=== PATIENT | female | born 2000 | race Caucasian/White ===

== ENCOUNTER 2023-04-30 10:55 | Emergency (ER) | payer OTHER ==
[~2023-04-30] VITALS: Ht 154.9 cm; Wt 90.9 kg
[2023-04-30 11:07] VITALS: TEMP 98.4
[2023-04-30] MEDS: ACETAMINOPHEN 500 MG TABLET PO ONE (12:31)
[2023-04-30] MEDS: FLUCONAZOLE 150 MG TABLET PO ONE (12:31)
[2023-04-30 12:36] LABS: APPEARANCE,URINE HAZY (CLEAR); BILIRUBIN,URINE NEGATIVE (NEGATIVE); COLOR,URINE LIGHT YELLOW (YELLOW); GLUCOSE, URINE (UA) >=1000 mg/dL (NEGATIVE); LEUKOCYTE ESTERASE ,URINE MODERATE (NEGATIVE); NITRATE,URINE NEGATIVE (NEGATIVE); OCCULT BLOOD,URINE TRACE (NEGATIVE); PROTEIN,URINE TRACE mg/dL (NEGATIVE); UROBILINOGEN,URINE <=1.0 mg/dL (<=1.0)
[2023-04-30 12:47] LABS: BACTERIA,URINE Moderate /HPF (None Seen); CALCIUM OXALATE CRYSTALS,UR Moderate /LPF (None Seen); SQUAMOUS EPITHELIAL CELL,UR Few /LPF (None Seen)
[2023-04-30 12:50] LABS: HCG,QUAL URINE NEGATIVE (NEGATIVE)
[2023-04-30 13:00] VITALS: BP 120/72; PULSE 75; RESP 14
[2023-04-30] MEDS ORDERED: IBUP-1492 PO (13:06)
[2023-04-30] MEDS ORDERED: CEPH-558 PO (13:06)
[2023-04-30] MEDS ORDERED: ACET-3385 PO (13:06)
== END 2023-04-30 13:13 | disposition home or self-care (01) ==
LOC: EMS 10:55
DX: N39.0 Urinary tract infection, site not specified (principal)
CPT/HCPCS: 81001; 84703; 87086; 87186; 87210; 87491; 87591; 99283

== ENCOUNTER 2023-08-27 17:29 | Emergency (ER) | payer OTHER ==
[~2023-08-27] VITALS: Ht 154.9 cm; Wt 92.3 kg
[~2023-08-27 17:29] MED LIST: ACET-3385 PO; CEPH-558 PO; IBUP-1492 PO
[2023-08-27 17:30] VITALS: TEMP 98
[2023-08-27 17:50] LABS: BASOPHILS % (AUTO) 0.6 % (0.0-2.0); EOSINOPHILS % (AUTO) 2.4 % (1.0-6.0); HEMATOCRIT 38.2 % (36-46); LYMPHOCYTES # (AUTO) 4.6 K/uL (1.0-4.8); LYMPHOCYTES % (AUTO) 31.7 % (22.0-44.0); MEAN CORPUSCULAR HEMOGLOBIN 24.5 pg (26.0-34.0); MEAN CORPUSCULAR HGB CONC 31.4 G/dL (31.0-37.0); MEAN CORPUSCULAR VOLUME 78 fL (80-100); MONOCYTES # (AUTO) 0.9 K/uL (0.1-1.0); MONOCYTES % (AUTO) 6.4 % (2.0-9.0); NEUTROPHILS # (AUTO) 8.6 K/uL (1.8-7.7); NEUTROPHILS % (AUTO) 58.9 % (40.0-70.0); PLATELET COUNT (AUTO) 413 K/uL (150-450); RED BLOOD CELL COUNT(AUTO) 4.89 MIL/uL (4.00-5.20); RED CELL DISTRIBUTION WIDTH 14.4 % (11.5-14.5); WHITE BLOOD COUNT (AUTO) 14.7 K/uL (4.5-11.0)
[2023-08-27 17:52] LABS: APPEARANCE,URINE CLEAR (CLEAR); BILIRUBIN,URINE NEGATIVE (NEGATIVE); COLOR,URINE LIGHT YELLOW (YELLOW); GLUCOSE, URINE (UA) >=1000 mg/dL (NEGATIVE); KETONES,URINE NEGATIVE (NEGATIVE); LEUKOCYTE ESTERASE ,URINE TRACE (NEGATIVE); NITRATE,URINE NEGATIVE (NEGATIVE); OCCULT BLOOD,URINE NEGATIVE (NEGATIVE); PH,URINE 6.5 (5.0-8.0); PROTEIN,URINE NEGATIVE (NEGATIVE); SPECIFIC GRAVITIY, URINE 1.046 (1.003-1.030); UROBILINOGEN,URINE <=1.0 mg/dL (<=1.0)
[2023-08-27 18:02] LABS: ANION GAP 6 mmol/L (8-16); CALCIUM, TOTAL 9.1 mg/dL (8.8-10.5); CARBON DIOXIDE 31 mmol/L (22-29); CHLORIDE 96 mmol/L (98-107); CREATININE 0.54 mg/dL (0.60-1.30); GLOMERULAR FILTR. RATE CALC > 60 mL/min (>60); GLUCOSE,RANDOM 292 mg/dL (70-110); POTASSIUM 3.6 mmol/L (3.5-5.1); SODIUM SERUM 133 mmol/L (136-145); UREA NITROGEN, BLOOD 8 mg/dL (7-18)
[2023-08-27] MEDS: ONDANSETRON HCL 4 MG/2 ML VIAL IVP ONE (18:04)
[2023-08-27] MEDS: SODIUM CHLORIDE 0.9% 1,000 ML IV ONE (18:05)
[2023-08-27 18:07] LABS: RBC,URINE 0-2 /HPF (0-2)
[2023-08-27 18:08] LABS: BACTERIA,URINE Few /HPF (None Seen); SQUAMOUS EPITHELIAL CELL,UR Moderate /LPF (None Seen)
[2023-08-27 18:13] LABS: HCG,QUANTITATIVE 1 mIU/mL (0-6)
[2023-08-27] MEDS: KETOROLAC TROMETHAMINE 30 MG/ML VIAL IVP ONE (18:29)
[2023-08-27] MEDS: METOCLOPRAMIDE HCL 5 MG/ML 2 ML VIAL IVP ONE (19:23)
[2023-08-27] MEDS ORDERED: CEPH-558 PO (19:59)
[2023-08-27] MEDS ORDERED: ONDA-104 PO (19:59)
[2023-08-27] MEDS: CEPHALEXIN MONOHYDRATE 500 MG CAPSULE PO ONE (20:42)
[2023-08-27 22:53] VITALS: BP 124/75; PULSE 73; RESP 16
== END 2023-08-27 23:15 | disposition home or self-care (01) ==
LOC: EMS 17:43
DX: N30.90 Cystitis, unspecified without hematuria (principal)
CPT/HCPCS: 99285; 74176; 96374; 96375; 96361; 80048; 81001; 82962; 84702; 85025; 36415; J1885; J2765; J2405; J7030